=== PATIENT | female | born 1975 | race Caucasian/White ===

== ENCOUNTER 2017-11-18 00:10 | Emergency (ER) | payer OTHER ==
--- NOTE | 2017-11-18 00:29 | PDOC ---
History of Present Illness - General Stated Complaint: FALL/ANKLE PAIN Time Seen by Provider: 11/18/17 00:23 History Source: Patient Exam Limitations: No Limitations - History of Present Illness Initial Comments: 11/18/17 01:08 Pmhx:0 Pshx:0 Allergies:0 11/18/17 02:20 42-year-old female presents to the emergency department complaining of right ankle pain. Pain is described as 8/10 sharp constant nonradiating discomfort. Pain is exacerbated on weight-bear and there are no alleviating factors. Patient denies knee pain. Patient states she slipped on the icy pavement causing her to invert her right ankle and fell putting on her pressure on her right ankle. Past History - Past Medical History Allergies/Adverse Reactions: Allergies Allergy/AdvReac Type Severity Reaction Status Date / Time ibuprofen Allergy Swelling Verified 11/18/17 00:29 Penicillins Allergy Verified 11/18/17 00:29 Home Medications: Ambulatory Orders Oxycodone HCl/Acetaminophen [Percocet 5-325 mg Tablet] 1 tab PO TID #15 tablet MDD 3 11/18/17 - Surgical History GI Surgery: Yes ([facility]) - Reproductive History (#): 2 Para: 1 Therapeutic (s) & number: No Spontaneous : 1 - Suicide/Smoking/Psychosocial Hx Smoking Status: Yes Smoking History: Current every day smoker Number of Cigarettes Smoked Daily: 3 'Breaking Loose' booklet given: 01/28/14 Hx Alcohol Use: Yes (SOCIAL) Drug/Substance Use Hx: No Substance Use Type: None Review of Systems - Review of Systems Able to Perform ROS?: Yes Comments:: 11/18/17 02:23 MUSCULOSKELETAL: Absent: myalgia, arthralgia, joint swelling SKIN: Absent: rash, itching, pallor HEMATOLOGIC/IMMUNOLOGIC: Absent: easy bleeding, easy bruising, lymphadenopathy, frequent infections Right ankle +pain +swelling neg ext numbness/tingling sensation neg knee pain Is the patient limited Portuguese proficient: No *Physical Exam - Physical Exam Comments: 11/18/17 02:24 MUSCULOSKELETAL Normal range of motion at all joints. No bony deformities or tenderness. No CVA tenderness. EXTREMITIES: No cyanosis. No clubbing. No edema. No calf tenderness. SKIN: Warm and dry. Normal capillary refill. No rashes. No jaundice. Right ankle decreased R.O.M. +swelling achilles intact 2+dp pulse Right foot 2+pedal neg pain to base of 5th mt Right knee F.R.O.M. neg pain to prox fib *DC/Admit/Observation/Transfer Diagnosis at time of Disposition: Trimalleolar fracture of ankle, closed Qualifiers: Encounter type: initial encounter Laterality: right Qualified Code(s): S82.851A - Displaced trimalleolar fracture of right lower leg, initial encounter for closed fracture - Discharge Dispostion Condition at time of disposition: Stable Admit: No - Prescriptions Prescriptions: Oxycodone HCl/Acetaminophen [Percocet 5-325 mg Tablet] 1 tab PO TID #15 tablet MDD 3 - Referrals Referrals: Lakhwinder Fortune MD [Staff Physician] - - Patient Instructions Printed Discharge Instructions: DI for Ankle Fracture Additional Instructions: Ice; 20 mins on alternating with 20 mins off for 48 hours while awake. Rest Elevate Follow up with your orthopedic surgeon or the one listed on the discharge form. Return to the ER for severe/persistent/worsening symptoms, extremity numbness/ tingling sensation. - Post Discharge Activity
[2017-11-18 00:34] VITALS: BP 120/79; PULSE 82; TEMP 98.2; BMI 27.3
== END 2017-11-18 03:10 | disposition home or self-care (01) ==
LOC: JER 00:10
DX: S82.851A Displaced trimalleolar fracture of right lower leg, initial encounter for closed fracture (principal); W00.2XXA Other fall from one level to another due to ice and snow, initial encounter; Y93.89 Activity, other specified; Y92.480 Sidewalk as the place of occurrence of the external cause; Y99.8 Other external cause status
CPT/HCPCS: 73610-TC-RT-FY; 99284-25

== ENCOUNTER 2022-08-17 21:05 | Observation (INO) | payer SELFPAY ==
[2022-08-17] MEDS ORDERED: morphine CARPU-JECT 4 MG/1 ML DISP.SYRIN IVPUSH ONE (21:37)
[2022-08-17] MEDS ORDERED: morphine SULFATE 4 MG/ML VIAL ONE (21:44)
[2022-08-17] MEDS ORDERED: ONDANSETRON 4 MG/2 ML VIAL IVPUSH ONE (21:55)
[2022-08-17] MEDS ORDERED: ONDANSETRON 4 MG/2 ML VIAL ONE (22:27)
[2022-08-17 22:38] LABS: BASO % 0.7 % (0-2.0); EOS % 0.5 % (0-4.5); HEMATOCRIT 36.8 % (32.4-45.2); HEMOGLOBIN 12.5 GM/dL (10.7-15.3); LYMPH % 18.5 % (8-40); MCH 36.1 pg (25.7-33.7); MCHC 33.9 g/dl (32.0-36.0); MEAN CELL VOLUME 106.4 fl (80-96); MEAN PLT VOLUME 9.2 fl (7.5-11.1); MONO % 6.7 % (3.8-10.2); NEUT % 73.6 % (42.8-82.8); PLATELET COUNT 266 10^3/uL (134-434); RBC 3.46 M/mm3 (3.60-5.2); RDW 15.2 % (11.6-15.6); WHITE BLOOD COUNT 8.5 K/mm3 (4.0-10.0)
[2022-08-17 22:52] LABS: EPI CELLS 11 /uL (0-25.1); HYALINE CASTS 1 /uL (0-3.1); PH,URINE 5.5 (5.0-8.0); URINE APPEARANCE CLEAR; URINE BACTERIA 151 /uL (0-1359); URINE BILIRUBIN NEGATIVE (NEGATIVE); URINE COLOR YELLOW; URINE GLUCOSE (UA) NEGATIVE (NEGATIVE); URINE KETONE TRACE (NEGATIVE); URINE LEUK ESTERASE NEGATIVE (NEGATIVE); URINE NITRITE NEGATIVE (NEGATIVE); URINE PROTEIN NEGATIVE (NEGATIVE); URINE RBC 11 /uL (0-23.9); URINE WBC 7 /uL (0-25.8)
[2022-08-17 22:57] LABS: ALBUMIN 3.8 g/dl (3.4-5.0); CALCIUM 9.4 mg/dL (8.5-10.1); MAGNESIUM 2.3 mg/dL (1.8-2.4)
[2022-08-17 22:59] LABS: CREATININE 0.8 mg/dL (0.55-1.3)
[2022-08-17 23:02] LABS: BILIRUBIN,TOTAL 0.4 mg/dL (0.2-1); TOT PROT 7.8 g/dl (6.4-8.2)
[2022-08-17] MEDS ORDERED: LACTATED RINGERS SOLUTION 1000 ML INFUS.BAG IV ONE (23:02)
[2022-08-17] MEDS ORDERED: HYDROmorphone HCL CARPU-JECT 2 MG/1 ML DISP.SYRIN IVPUSH ONE (23:51)
[2022-08-18] MEDS ORDERED: HYDROmorphone HCl 2 MG/ML VIAL ONE (00:50)
[2022-08-18] MEDS ORDERED: ONDANSETRON 4 MG/2 ML VIAL IVPUSH PRN (08:39)
[2022-08-18] MEDS ORDERED: morphine CARPU-JECT 4 MG/1 ML DISP.SYRIN IVPUSH PRN (08:40)
[2022-08-18] MEDS ORDERED: ACETAMINOPHEN 1000 MG/100 ML BAG IVPB PRN (08:41)
[2022-08-18] MEDS: SODIUM CHLORIDE 1,000 ML IV SCH (11:34)
[2022-08-18] MEDS ORDERED: morphine SULFATE 4 MG/ML VIAL IVPUSH PRN (11:50)
[2022-08-18] MEDS ORDERED: CEFTRIAXONE 1 GM in DEXTROSE 5%-WATER - 50 ML IVPB SCH (12:16)
[2022-08-18 14:46] VITALS: BMI 29.0
[2022-08-18] MEDS ORDERED: HYDROmorphone HCl 2 MG/ML VIAL IVPB ONE (15:46)
[2022-08-18 15:53] LABS: INR 0.97 (0.83-1.09); PROTHROMBIN TIME (PATIENT) 11.1 SEC (9.7-13.0)
[2022-08-18 16:03] LABS: BASO % 0.6 % (0-2.0); EOS % 0.8 % (0-4.5); HEMATOCRIT 37.7 % (32.4-45.2); HEMOGLOBIN 12.7 GM/dL (10.7-15.3); LYMPH % 21.9 % (8-40); MCH 35.6 pg (25.7-33.7); MCHC 33.8 g/dl (32.0-36.0); MEAN CELL VOLUME 105.4 fl (80-96); MEAN PLT VOLUME 8.2 fl (7.5-11.1); MONO % 7.5 % (3.8-10.2); NEUT % 69.2 % (42.8-82.8); PLATELET COUNT 319 10^3/uL (134-434); RBC 3.58 M/mm3 (3.60-5.2); RDW 15.3 % (11.6-15.6); WHITE BLOOD COUNT 7.1 K/mm3 (4.0-10.0)
[2022-08-18 16:14] LABS: CALCIUM 8.9 mg/dL (8.5-10.1)
[2022-08-18 16:15] LABS: ALBUMIN 3.7 g/dl (3.4-5.0); BLOOD UREA NITROGEN 6.6 mg/dL (7-18)
[2022-08-18 16:17] LABS: BILIRUBIN,DIRECT 0.3 mg/dL (0.0-0.2); CREATININE 0.6 mg/dL (0.55-1.3)
[2022-08-18 16:19] LABS: BILIRUBIN,TOTAL 0.7 mg/dL (0.2-1); IRON SERUM 140 ug/dL (50-175); TOT PROT 7.2 g/dl (6.4-8.2); TOTAL IRON BINDING CAPACITY 307 ug/dL (250-450)
[2022-08-19] MEDS: SODIUM CHLORIDE 1,000 ML IV SCH ×2 (04:30→09:00)
[2022-08-19] MEDS ORDERED: PANTOPRAZOLE 40 MG TABLET PO SCH (10:00)
[2022-08-19 10:37] VITALS: RESP 16
[2022-08-19 13:52] VITALS: TEMP 98.7
[2022-08-19 13:54] VITALS: BP 138/87; PULSE 72
== END 2022-08-19 16:18 | disposition home or self-care (01) ==
LOC: JER 21:05 → JERBED 08-18 04:00 → INTOOBSV 08-18 04:00 → UNDOADMOB 08-18 04:00 → JERBED 08-18 08:19 → J5S 08-18 08:49
PROVIDERS: ADMIT Internal Medicine; ATTEND Internal Medicine
PROC: 3E0337Z Introduction of Electrolytic and Water Balance Substance into Peripheral Vein, Percutaneous Approach (ICD-10-PCS; principal; 2022-08-18)
PROC: 3E03329 Introduction of Other Anti-infective into Peripheral Vein, Percutaneous Approach (ICD-10-PCS; 2022-08-18)
PROC: 3E033NZ Introduction of Analgesics, Hypnotics, Sedatives into Peripheral Vein, Percutaneous Approach (ICD-10-PCS; 2022-08-18)
DX: K85.90 Acute pancreatitis without necrosis or infection, unspecified (principal); K76.0 Fatty (change of) liver, not elsewhere classified; Z98.84 Bariatric surgery status; F14.21 Cocaine dependence, in remission; R10.9 Unspecified abdominal pain; F17.210 Nicotine dependence, cigarettes, uncomplicated; R63.0 Anorexia; R11.0 Nausea; R26.2 Difficulty in walking, not elsewhere classified; Z29.8 Encounter for other specified prophylactic measures; Z88.8 Allergy status to other drugs, medicaments and biological substances; Z88.0 Allergy status to penicillin
CPT/HCPCS: 36415; 71045-TC-FY; 74177-TC; 74181-TC; 76705-TC; 78226-TC; 80048; 80053; 80061; 80076; 81003; 82607; 82728; 82746; 83540; 83550; 83690; 83735; 84703; 85025; 85610; 86140; 86704; 86803; 87086; 87340; 87517; 93005; 93010; 96365; 96375; 96376; 99285-25; A9537; C9803-CS; G0378; Q9967; U0003; U0005

== ENCOUNTER 2024-01-14 17:34 | Emergency (ER) | payer OTHER ==
[2024-01-14 17:51] VITALS: BP 120/82; PULSE 93; RESP 18; TEMP 97.8; BMI 25.9
[2024-01-14 18:54] LABS: BASO % 0.4 % (0-2.0); EOS % 0.3 % (0-4.5); HEMATOCRIT 44.3 % (32.4-45.2); LYMPH % 11.9 % (8-40); MCH 35.7 pg (25.7-33.7); MCHC 33.9 g/dl (32.0-36.0); MEAN CELL VOLUME 105.3 fl (80-96); MEAN PLT VOLUME 7.5 fl (7.5-11.1); MONO % 3.9 % (3.8-10.2); NEUT % 83.5 % (42.8-82.8); PLATELET COUNT 266 10^3/uL (134-434); RBC 4.21 M/mm3 (3.60-5.2); RDW 14.3 % (11.6-15.6); WHITE BLOOD COUNT 12.1 K/mm3 (4.0-10.0)
[2024-01-14 19:01] LABS: INR 0.98 (0.83-1.09); PROTHROMBIN TIME (PATIENT) 11.4 SEC (9.7-13.0)
[2024-01-14 19:03] LABS: EPI CELLS 6 /uL (0-25.1); HYALINE CASTS 4 /uL (0-3.1); URINE APPEARANCE Error; URINE BACTERIA 12 /uL (0-1359); URINE BILIRUBIN NEGATIVE (NEGATIVE); URINE COLOR YELLOW; URINE GLUCOSE (UA) NEGATIVE (NEGATIVE); URINE KETONE NEGATIVE (NEGATIVE); URINE LEUK ESTERASE NEGATIVE (NEGATIVE); URINE NITRITE NEGATIVE (NEGATIVE); URINE PROTEIN NEGATIVE (NEGATIVE); URINE RBC 14 /uL (0-23.9); URINE UROBILINOGEN 0.2 mg/dL (0.2-1.0); URINE WBC 2 /uL (0-25.8)
[2024-01-14 19:04] LABS: ACTIVATED PTT 28.6 SECONDS (25.2-36.5)
[2024-01-14 19:17] LABS: POTASSIUM 4.4 mmol/L (3.5-5.1)
[2024-01-14 19:20] LABS: ALBUMIN 4.2 g/dl (3.4-5.0); CALCIUM 9.4 mg/dL (8.5-10.1); MAGNESIUM 2.4 mg/dL (1.8-2.4)
[2024-01-14 19:23] LABS: CREATININE 0.9 mg/dL (0.55-1.3)
[2024-01-14 19:25] LABS: BILIRUBIN,TOTAL 0.2 mg/dL (0.2-1); TOT PROT 8.6 g/dl (6.4-8.2)
[2024-01-14 19:26] LABS: BLOOD UREA NITROGEN 9.1 mg/dL (7-18)
[2024-01-14 22:11] LABS: ANISOCYTOSIS 0; MACROCYTOSIS 1+; PLATELET ESTIMATE NORMAL
== END 2024-01-14 20:18 | disposition home or self-care (01) ==
LOC: JER 17:34
DX: R55 Syncope and collapse (principal); R94.5 Abnormal results of liver function studies; R63.4 Abnormal weight loss; N93.9 Abnormal uterine and vaginal bleeding, unspecified
CPT/HCPCS: 36415; 71046-TC-FY; 80053; 81003; 83540; 83550; 83735; 84443; 84484; 84703; 85025; 85610; 85730; 86850; 86900; 86901; 93005; 93010; 99285-25